=== PATIENT | female | born 1960 | race Hispanic/Latino ===

== ENCOUNTER 2022-12-27 19:17 | Emergency (ER) | payer BC ==
[~2022-12-27] VITALS: Ht 165.1 cm; Wt 110.7 kg
[2022-12-27] MEDS ORDERED: DiphenhydrAMINE HCL 50 MG/ML VIAL IV ONE (20:30)
[2022-12-27] MEDS ORDERED: CYCLOBENZAPRINE HCL 10 MG TABLET PO ONE (20:30)
[2022-12-27] MEDS ORDERED: METOCLOPRAMIDE 10 MG/2 ML VIAL IVP ONE (20:30)
[2022-12-27] MEDS ORDERED: MORPHINE 2 MG SYG IVP ONE (20:30)
[2022-12-27] MEDS ORDERED: CYCL-309 PO (22:55)
[2022-12-27] MEDS ORDERED: IBUP-1493 PO (22:55)
[2022-12-27] MEDS ORDERED: GABA300C PO (22:55)
[2022-12-27 23:07] VITALS: BP 142/68
== END 2022-12-27 23:16 | disposition home or self-care (01) ==
LOC: EDH 19:17
DX: G43.909 Migraine, unspecified, not intractable, without status migrainosus (principal); M19.90 Unspecified osteoarthritis, unspecified site; E11.9 Type 2 diabetes mellitus without complications; I10 Essential (primary) hypertension; Z79.899 Other long term (current) drug therapy
CPT/HCPCS: 99285; 70450; 96374; 96375; 72125; J1200; J2765